=== PATIENT | male | born 1965 | race Caucasian/White ===

== ENCOUNTER → 2016-07-05 | Day surgery (SDC) | payer BC ==
[~2016-07-05] MED LIST: Lactated Ringers 1,000 ML IV SCH; Propofol 200 MG/20 ML SDV IV ONE
[2016-07-05 12:00] VITALS: BP 135/83
--- NOTE | 2016-07-05 13:04 | OR ---
DATE OF OPERATION: 07/05/2016 PREOPERATIVE DIAGNOSIS: SCREENING COLONOSCOPY. POSTOPERATIVE DIAGNOSIS: SCREENING COLONOSCOPY. SURGEON: Nash Mac MD PROCEDURE: FULL-LENGTH COLONOSCOPY. ANESTHESIA: MANUSCRIPTS CURATOR due to sleep apnea. COMPLICATIONS: None. SPECIMEN: None. FINDINGS: Normal full-length colonoscopy. RECOMMENDATIONS: Routine colonoscopy every 10 years. INDICATIONS: The patient was in for a physical. Dr. Caldera recommended a screening procedure. DESCRIPTION OF PROCEDURE: The patient was prepped and draped, placed in the left lateral decubitus position. A lubricated Olympus colonoscope was inserted and easily advanced to the cecum. Direct visualization of the ileocecal valve and appendiceal orifice was accomplished. Bowel prep was adequate. Upon withdrawal of the scope throughout the entire length of the colon, I found no signs of any polyps, masses, ulcerations, or bleeding sites. No vascular abnormalities or signs of colitis. No signs of any significant diverticula. The rectal vault was unremarkable. Retroflexion scope in the rectum showed no anal lesions. Air was suctioned. Scope removed without complication. The patient was taken to the recovery room. MAKENNA/MIROSLAVA /[id number]
== END ==
LOC: CC.SDS 10:02
PROVIDERS: ATTEND Family Medicine
DX: Z12.11 Encounter for screening for malignant neoplasm of colon (principal); G47.30 Sleep apnea, unspecified
CPT/HCPCS: 45378; J2704; J7120